=== PATIENT | male | born 1995 | race African-American/Black ===

== ENCOUNTER → 2016-05-13 | Day surgery (SDC) | payer OTHER ==
[2016-05-12 15:30] VITALS: Ht 177.8 cm; Wt 77.3 kg
[~2016-05-13] VITALS: Ht 177.8 cm; Wt 77.3 kg
[~2016-05-13] MED LIST: IOPAMIDOL INJ 61% 15 ML VIAL ONE; LIDOCAINE HCL 1% MPF 5 ML VIAL ONE; SODIUM CHLORIDE 0.9% INJ 10 ML VIAL ONE
--- NOTE | 2016-05-13 13:10 | History & Physical Bridge - [place] ---
H&P Re-Evaluation Bridge Note: I have examined the patient, reviewed the History & Physical and in the interval since the performance of the History & Physical I have noted the following changes of clinical significance: No changes noted
[2016-05-13 13:34] VITALS: TEMP 37.3
--- NOTE | 2016-05-13 13:37 | Discharge Instructions ---
Discharge Instructions Visit Reason for Visit: Low Back Pain Discharge Discharge Diagnosis / Problem: left leg pain Discharge Goals Goal(s): Decrease discomfort, Improve function Activity Recommendations Activity Limitations: resume your previous activity Anesthesia . Post Anesthesia Instructions: If you have had General Anesthesia or IV Sedation: * Do not drive today. * Resume driving when surgeon permits. * Do not make important decisions or sign legal documents today. * Call surgeon for: 1. Temperature elevations greater than 101 degrees F. 2. Uncontrollable pain. 3. Excessive bleeding. 4. Persistent nausea and vomiting. 5. Medication intolerance (nausea, vomiting or rash). * For nausea and vomiting use only clear liquids such as: tea, soda, bouillon until nausea subsides, then gradually increase diet as tolerated. * If you have any concerns or questions, call your surgeon's office. If physician is unavailable and it is an emergency, call 911 or go to the nearest emergency room. . Diet Recommendations Recommended Home Diet: resume previous diet Procedures Procedures Performed: lumbar epidural steroid injection Pending Studies Studies pending at discharge: no Medical Emergencies . Who to Call and When: Medical Emergencies: If at any time you feel your situation is an emergency, please call 911 immediately. . Non-Emergent Contact Non-Emergency issues call your: Specialist . . "Provider Documentation" section prepared by Rasheed Quiñonez.
[2016-05-13 13:47] VITALS: BP 107/63; PULSE 69; O2SAT 98
--- NOTE | 2016-05-13 14:21 | OPERATIVE REPORT ---
DATE OF OPERATION: 05/13/2016 PREOPERATIVE DIAGNOSIS: L5-S1 herniated nucleus pulposus with left lower extremity radiculopathy. POSTOPERATIVE DIAGNOSIS: Same. PROCEDURE: The patient is a 21-year-old -Citizen Of [place] male who has received epidural injections in the past with good results. However, the pain is starting to return and become problematic to him and he presents today for an epidural steroid injection to provide him with continued relief of radicular pain. PHYSICAL EXAMINATION: Pleasant male seated comfortably can. He has no tenderness to palpation of his lumbar paraspinal muscles. He has positive state seated straight leg raises with some hamstring tightness. He has no focal weakness or no sensory loss. CONSENT: Verbal and written consent was obtained from the patient. Risks and benefits were reviewed. Risks include but are not limited to epidural abscess, epidural hematoma, allergic reaction, dural puncture. The patient wishes to proceed. PROCEDURE: The patient was taken back to the special procedures room of the [facility] where he was maintained in a prone position. Backside was cleansed with Betadine x3 and a dry sterile dressing was applied. Fluoroscope was used to identify the L5-S1 intralaminar space overlying skin on the left side was anesthetized with 4 mL of lidocaine 1% with a 25 gauge 1.5-inch needle. A 22-gauge 3-1/2 inch Tuohy needle was then directed under fluoroscopic guidance into the intralaminar space. It was advanced under lateral fluoroscopic guidance to a depth of 7 cm. Isovue-300 contrast 1 mL was injected in which demonstrated epidural uptake pattern. This was confirmed with both an AP and lateral view. He then underwent injection after negative aspiration of 40 mg of Depo-Medrol and 4 mL of preservative free sodium chloride. It reproduced a familiar transient radicular sensation down the leg. DISPOSITION: 1. The patient is taken out into the discharge recovery area where he will be discharged home once discharge criteria have been met. 2. Follow up in the [facility] office in 2-4 weeks. I attest to the content of the Intraoperative Record and any orders documented therein. Any exceptio ns are noted below.
== END | disposition home or self-care (01) ==
LOC: X.SURG 12:08
PROVIDERS: ATTEND Physical Medicine & Rehabilitation
DX: M51.27 Other intervertebral disc displacement, lumbosacral region (principal); M54.16 Radiculopathy, lumbar region

== ENCOUNTER → 2016-07-23 | Outpatient (CLI) | payer OTHER ==
--- NOTE | 2016-07-23 09:10 | DIAGNOSTIC IMAGING REPORT ---
LUMBAR SPINE MRI HISTORY: Pain. Neuropathy. LUMBAR RADICULITIS TECHNIQUE: Multiplanar multisequence MRI of the lumbar spine was performed without the use of contrast. COMPARISON: 01/16/2016 FINDINGS: For the purpose of the report the L5-S1 disc space will be located on axial image 27 of 30. Normal signal characteristics of the vertebral bodies. Mild disc desiccation L5-S1. Sagittal images are unchanged from the prior study. L1-L2: No significant central canal or neural foraminal narrowing. L2-L3: No significant central canal or neural foraminal narrowing. L3-L4: No significant central canal or neural foraminal narrowing. L4-L5: Minimal broad-based disc bulge. Minimal impact with anterior thecal sac. No change from the prior study. L5-S1: Mild central disc herniation. Minimal compromise of the spinal canal and neural foramina bilaterally. No change in the prior study. IMPRESSION: 1. Identical study compared to prior examination of 01/16/2016. 2. Small disc herniation L5-S1 with mild multifactorial narrowing of spinal canal and to lesser extent neural foramina. 3.. Minimal disc bulge L4-L5. Also unchanged from the prior exam. Electronically signed by: Dimitry Alva M.D. 07/23/2016 9:08 AM Dictated Date/Time: 07/23/2016 9:03 AM
== END | disposition home or self-care (01) ==
LOC: C.MRI 07:54
PROVIDERS: ATTEND Family Medicine
DX: M51.26 Other intervertebral disc displacement, lumbar region (principal)